=== PATIENT | male | born 1970 | race Hispanic/Latino ===

== ENCOUNTER 2018-06-22 05:42 | Emergency (ER) | payer OTHER ==
[2018-06-22 06:18] LABS: #Basophils 0.1 thou/uL (0.0-0.2); #Eosinphils 0.2 thou/uL (0.0-0.7); #Lymphocytes 2.1 thou/uL (1.20-3.40); #Monocytes 0.4 thou/uL (0.11-0.59); #Neutrophils 3.9 thou/uL (1.40-6.50); %Basophils 0.8 % (0.0-1.0); %Eosinophils 2.3 % (0.0-10.0); %Lymphocytes 32.5 % (21.0-51.0); %Monocytes 5.3 % (0.0-10.0); %Neutrophils 59.1 % (42.0-75.0); Hemoglobin 15.4 g/dL (14.0-18.0); Mean Corpuscular HGB CONC 36.2 g/dL (32.0-36.0); Mean Corpuscular Hemoglobin 33.5 pg (27.0-31.0); Mean Corpuscular Volume 92.5 fL (78.0-98.0); Mean Platelet Volume 9.1 fL (7.4-10.4); Platelet Count 206 thou/uL (130-400); Red Blood Cell (RBC) Count 4.61 mill/uL (4.70-6.10); White Blood Cell (WBC) Count 6.6 thou/uL (4.8-10.8)
[2018-06-22] MEDS ORDERED: Acetaminophen 500 MG TAB ONE (08:59)
[2018-06-22 10:37] LABS: Albumin 4.3 g/dL (3.5-5.0); Alkaline Phosphatase 80 U/L (40-150); Anion Gap 15 mmol/L (10-20); Calc. Creatinine Clearance 0 mL/min (70-130); Calcium 9.3 mg/dL (7.8-10.44); Carbon Dioxide 22 mmol/L (22-29); Chloride 103 mmol/L (98-107); Estimated GFR-MDRD 89; Globulin 3.5 g/dL (2.4-3.5); Glucose 143 mg/dL (70-105); Potassium 3.7 mmol/L (3.5-5.1); Protein, Total 7.8 g/dL (6.0-8.3); Sodium 136 mmol/L (136-145)
[2018-06-22 10:49] LABS: ALT (SGPT) 25 U/L (8-55); AST (SGOT) 24 U/L (5-34); BUN (Urea Nitrogen) 10 mg/dL (8.9-20.6)
[2018-06-22 11:01] LABS: CK (CPK) 113 U/L (30-200)
[2018-06-22 11:02] LABS: Troponin I Less than 0.010 ng/mL (< 0.028)
--- NOTE | 2018-06-22 11:23 | RAD ---
PORTABLE CHEST: 06/22/2018 PROVIDED CLINICAL HISTORY: Chest pain. FINDINGS: The cardiac and mediastinal silhouette is within normal limits. The lungs appear clear. No pleural fluid or pneumothorax apparent. IMPRESSION: No evidence for an acute cardiopulmonary process. POS: [facility]ANNESSA[facility]
[2018-06-22] MEDS ORDERED: Mag-Al 1200 mg/1200 mg/30 ML UDCUP ONE (11:30)
[2018-06-22] MEDS ORDERED: Lidocaine Viscous Sol 2% 15 ml UD Cup ONE (11:30)
[2018-06-22 12:17] LABS: Troponin I Less than 0.010 ng/mL (< 0.028)
--- NOTE | 2018-07-03 13:17 | EKG ---
Test Reason : Blood Pressure : / mmHG Vent. Rate : 080 BPM Atrial Rate : 080 BPM P-R Int : 136 ms QRS Dur : 088 ms QT Int : 368 ms P-R-T Axes : 023 -02 -14 degrees QTc Int : 424 ms Sinus rhythm with occasional Premature ventricular complexes Nonspecific T wave abnormality Abnormal ECG Confirmed by HODA DSOUZA ([id number]), subeditor VARUN GREEN ([id number]) on 07/03/2018 1:17:34 PM Referred By: Confirmed By:HODA DSOUZA
== END 2018-06-22 13:51 | disposition home or self-care (01) ==
LOC: ERS 05:42
DX: R07.9 Chest pain, unspecified (principal); R10.13 Epigastric pain
CPT/HCPCS: 36415; 71045; 80053; 82553; 84484; 85025; 93005